=== PATIENT | female | born 1995 | race Caucasian/White ===

== ENCOUNTER 2018-05-25 03:00 | Emergency (ER) | payer SELFPAY ==
[~2018-05-25] VITALS: Ht 160 cm; Wt 54.4 kg
[2018-05-25 03:57] VITALS: BP 112/67
--- NOTE | 2018-05-25 04:04 | PHYS DOC ---
Adult General Chief Complaint Chief Complaint: THUMB HPI HPI Patient is a 22 year old female who presents with pain and swelling over the left thumb and around the thumbnail. The patient has had symptoms over the last 3-4 days. Symptoms became more severe over the last 24 hours. No fever or chills. She denies similar symptoms in the past. The patient does state she chews on her fingernails. She is uncertain when her last tetanus shot was. She denies additional complaints today. No trauma to that digit Review of Systems Review of Systems Constitutional: Denies fever HENT: Denies Respiratory: Denies Cardiovascular: No additional information : Denies Musculoskeletal: Denies Integument: Denies rash or skin lesions All other systems were reviewed and found to be within normal limits, except as documented in this note. Current Medications Current Medications Current Medications Medications (Trade) Dose Ordered Sig/Patrice Start Time Stop Time Status Last Admin Dose Admin Acetaminophen/ Hydrocodone Bitart (Lortab 5/325) 2 tab 1X ONCE 05/25/18 05:30 05/25/18 05:31 DC 05/25/18 05:13 2 TAB Diphtheria/ Tetanus/Acell Pertussis (Boostrix) 0.5 ml ONCE ONCE 05/25/18 05:30 05/25/18 05:31 DC Lidocaine HCl (Lidocaine 1% 20ml Vial) 20 ml 1X ONCE 05/25/18 05:00 05/25/18 05:01 DC 05/25/18 04:35 20 ML Allergies Allergies Allergies Coded Allergies Type Severity Reaction Last Updated Verified No Known Drug Allergies 05/25/18 No Physical Exam Physical Exam Constitutional: Well developed, well nourished, no acute distress, non-toxic appearance HENT: Normocephalic, atraumatic, bilateral external ears normal, oropharynx moist Eyes: PERRLA Neck: Normal range of motion Skin: Warm, dry, no erythema Extremities: erythema and swelling around the left thumbnail Neurologic: Alert and oriented X 3 Psychologic: Affect normal Current Patient Data Vital Signs Vital Signs Date Time Temp Pulse Resp B/P (MAP) Pulse Ox O2 Delivery O2 Flow Rate FiO2 05/25/18 05:13 16 100 Room Air 05/25/18 03:57 98 112/67 (82) EKG EKG [] Radiology/Procedures Radiology/Procedures [] Course & Med Decision Making Course & Med Decision Making Pertinent Labs and Imaging studies reviewed. (See chart for details) Patient was evaluated in the emergency department for a paronychia. The fluid was drained. Referred to the procedure note below. In the ER, she was offered a tetanus booster but she refused this injection. She was given 2 [facility] for pain. The patient was not driving herself home. She is also started on Keflex. At discharge, appropriate use of opiate medications was discussed. All of her questions were answered prior to discharge home. Procedure note: Paronychia left thumb nail. Local anesthesia was provided with 5 total milliliters of 1% lidocaine. This was after the area was cleansed with Betadine. Once adequate anesthesia was achieved, curved scissors were used to release the eponychia from the nail. Local tissue was probed and there were several pockets of purulent fluid which were relieved. Patient tolerated the procedure very well. Dressing and splint was placed for comfort. Dragon Disclaimer Dragon Disclaimer This electronic medical record was generated, in whole or in part, using a voice recognition dictation system. Departure Departure Disposition: 01 HOME, SELF-CARE Condition: GOOD Referrals: NO PCP (PCP) Scripts Cephalexin (KEFLEX) 500 Mg Capsule 500 MG PO QID for 10 Days, #40 CAP Prov: SYL BELCHER DO 05/25/18 Hydrocodone/Apap 5-325 (NORCO 5-325 TABLET) 1 Each Tablet 1-2 EACH PO PRN Q6HRS PRN for SEVERE PAIN, #15 as needed for pain Prov: SYL BELCHER DO 05/25/18 SYL BELCHER DO May 25, 2018 04:04
[2018-05-25] MEDS ORDERED: LIDOCAINE 1% Multi-Dose 20 ML VIAL. INJ ONE (05:00)
[2018-05-25] MEDS ORDERED: HYDR-3164 PO (05:01)
[2018-05-25] MEDS ORDERED: CEPH-264 PO (05:02)
[2018-05-25] MEDS ORDERED: HYDROcodone/APAP 5/325MG 1 TAB TABLET PO ONE (05:30)
[2018-05-25] MEDS ORDERED: DIPHTH,PERTUSS(ACELL),TET TOX 0.5 ML DISP.SYRIN. VAX IM ONE (05:30)
== END 2018-05-25 05:28 | disposition home or self-care (01) ==
LOC: ER 03:00
DX: L03.012 Cellulitis of left finger (principal)
CPT/HCPCS: 10060; 99283